=== PATIENT | female | born 1985 | race Caucasian/White ===

== ENCOUNTER 2020-04-24 01:41 | Emergency (ER) | payer SELFPAY ==
[2020-04-24] MEDS ORDERED: IPRATROPIUM/ALBUTEROL 0.5-2.5 MG/3 ML AMPUL NEB ONE (04:02)
[2020-04-24] MEDS ORDERED: PREDNISONE 20 MG TABLET PO ONE (04:02)
--- NOTE | 2020-04-24 04:07 | ER Document Report ---
ED General - General Chief Complaint: Sinus Congestion Stated Complaint: SINUS CONGESTION Time Seen by Provider: 04/24/20 03:58 Notes: Patient is a 35-year-old female with a history of asthma and seasonal allergies that comes emergency department for chief complaint of worsening pain in her sinuses for the past 2 weeks with congestion, and also developing wheezing and running out of her albuterol at home. Patient has a home nebulizer, also ran out of her home inhaler. Patient denies fever, cough, headache, vomiting, sore throat. Patient states she has tried multiple [id number] remedies for her worsening sinus congestion pain but this is has not helped. She states now she is also developing some teeth pain in her upper jaw. She has a history of sinus infections frequently in the past. Patient denies any other medical history, denies , denies recreational drugs. She denies smoking. - Related Data Allergies/Adverse Reactions: No Known Allergies Allergy (Unverified 04/24/20 05:06) Past Medical History - General Information source: Patient - Social History Smoking Status: Former Smoker Frequency of alcohol use: None Drug Abuse: None Lives with: Family Family History: Reviewed & Not Pertinent Pulmonary Medical History: Reports: Hx Asthma - Immunizations Immunizations up to date: Yes Hx Diphtheria, Pertussis, Tetanus Vaccination: Yes Review of Systems - Review of Systems Constitutional: No symptoms reported EENT: See HPI Cardiovascular: No symptoms reported Respiratory: See HPI Gastrointestinal: No symptoms reported Genitourinary: No symptoms reported Female Genitourinary: No symptoms reported Musculoskeletal: No symptoms reported Skin: No symptoms reported Hematologic/Lymphatic: No symptoms reported Neurological/Psychological: No symptoms reported Physical Exam - Vital signs Vitals: Temp Pulse Resp BP Pulse Ox 98.8 F 86 20 154/92 H 99 04/24/20 02:03 04/24/20 02:03 04/24/20 02:03 04/24/20 02:03 04/24/20 02:03 - Notes Notes: GENERAL: Alert, interacts well. No acute distress. HEAD: Normocephalic, atraumatic. EYES: Pupils equal, round, and reactive to light. Extraocular movements intact. ENT: Oral mucosa moist, tongue midline. Oropharynx unremarkable. Airway patent. There is some nasal congestion, sinuses are tender on palpation especially in the maxillary sinuses, otherwise unremarkable. Ear canals unremarkable, TM's intact. NECK: Full range of motion. Supple. Trachea midline. No lymphadenopathy. LUNGS: Patient has scattered expiratory wheezes bilaterally. No tachypnea or labored breathing. No respiratory distress. Non-tender chest wall. HEART: Regular rate and rhythm. No murmur ABDOMEN: Soft, non-tender. Non-distended. EXTREMITIES: Moves all 4 extremities spontaneously. No edema, normal radial and dorsalis pedis pulses bilaterally. No cyanosis. BACK: no cervical, thoracic, lumbar midline tenderness. No saddle anesthesia, normal distal neurovascular exam. Moves all extremities in full range of motion. NEUROLOGICAL: Alert and oriented x3. Normal speech. Cranial nerves II through X II grossly intact. Strength 5/5 in all extremities. PSYCH: Normal affect, normal mood. SKIN: Warm, dry, normal turgor. No rashes or lesions noted. Course - Re-evaluation Re-evalutation: Patient with mild expiratory wheezes on exam, treated with duo nebs, steroids. Patient with sinus tenderness and developing pain over 2 weeks with developing pain in her teeth. Her exam is unremarkable otherwise, she is quite well- appearing, no fever, no headache, no concerning findings otherwise. Chest x-ray reviewed from triage and is negative for pneumonia or concerning findings. Provided with inhaler and spacer, prednisone, amoxicillin (requesting more affordable medication than Augmentin) discussed follow-up and return cautions. Patient states understanding and agreement with plan. Stable and well-appearing at time of discharge. - Vital Signs Vital signs: Temp Pulse Resp BP Pulse Ox 98.5 F 81 20 128/96 H 96 04/24/20 05:03 04/24/20 05:03 04/24/20 05:03 04/24/20 05:03 04/24/20 05:03 Discharge - Discharge Clinical Impression: Wheezing Sinusitis Qualifiers: Sinusitis location: unspecified location Chronicity: acute Recurrence: non- recurrent Qualified Code(s): J01.90 - Acute sinusitis, unspecified Asthma exacerbation Qualifiers: Asthma severity: mild Asthma persistence: intermittent Qualified Code(s): J45.21 - Mild intermittent asthma with (acute) exacerbation Condition: Stable Disposition: HOME, SELF-CARE Additional Instructions: Your chest x-ray does not show pneumonia, your evaluation is most consistent with a sinus infection and asthma exacerbation. Take antibiotics as prescribed, take prednisone as prescribed, use the albuterol inhaler and nebulizer if needed. Follow-up with primary care for additional management. Return if you worsen including difficulty breathing, spiking fevers, or any other concerning or worsening symptoms. Prescriptions: Amoxicillin Trihydrate [Amoxil 500 mg Capsule] 1,000 mg PO BID 7 Days #28 capsule Prednisone [Deltasone 20 mg Tablet] 3 tab PO DAILY 5 Days #15 tablet Albuterol Sulfate [Proventil 0.5% Neb 2.5 mg/0.5 ml Vial.neb] 2.5 mg NEB Q4H PRN #30 vial.neb PRN Reason:
--- NOTE | 2020-04-24 04:13 | RADIOLOGY REPORT (SQ) ---
EXAM DESCRIPTION: XR CHEST 2 VIEWS COMPLETED DATE/TME: 04/24/2020 03:12 CLINICAL HISTORY: 35 years, Female, wheezing, LLL COMPARISON: None. NUMBER OF VIEWS: 2 TECHNIQUE: 2 views of the chest LIMITATIONS: None. FINDINGS: The heart size is normal. Lungs are clear. No pneumothorax IMPRESSION: Negative chest copyright 2011 [employer]- All Rights Reserved
[2020-04-24] MEDS ORDERED: ALBUTEROL SULFATE HFA (90 MCG/PUFF) 8 GM MDI IH ONE (04:54)
[2020-04-24 05:04] VITALS: BP 128/96
== END 2020-04-24 05:17 | disposition home or self-care (01) ==
LOC: ER 01:41
DX: J45.21 Mild intermittent asthma with (acute) exacerbation (principal); J01.90 Acute sinusitis, unspecified
CPT/HCPCS: 94640; 99284; 71046; J7512; J3490